=== PATIENT | female | born 1975 | race Caucasian/White ===

== ENCOUNTER → 2016-05-07 | Outpatient (CLI) | payer OTHER, MEDICAID ==
[~2016-05-07] MED LIST: ATOM60CA PO; BUSP15TA47 PO; INSUH10VL; MIRT15TA50 PO; PARO20TA2 PO; PAXI20TA3 PO; TRIA0.1C60 EXT
[2016-05-07 09:47] LABS: MEAN CORPUSCULAR HEMOGLOBIN 29.1 pg (27.0-33.0); MEAN CORPUSCULAR HGB CONC 31.4 g/dl (32.0-36.5); MEAN CORPUSCULAR VOLUME 92.5 fl (80.0-96.0); RED CELL DISTRIBUTION WIDTH 14.6 % (11.5-14.5); WHITE BLOOD COUNT 5.7 K/mm3 (4.0-10.0)
[2016-05-07 09:57] LABS: ALBUMIN 3.5 GM/DL (3.2-5.2); ANION GAP 6 MEQ/L (8-16); BLOOD UREA NITROGEN 11 MG/DL (7-18); CALCIUM LEVEL 8.3 MG/DL (8.5-10.1); CARBON DIOXIDE LEVEL 30 MEQ/L (21-32); CHLORIDE LEVEL 105 MEQ/L (98-107); CHOLESTEROL LEVEL 173 MG/DL (<200); CREATININE FOR GFR 0.67 MG/DL (0.55-1.02); GLOMERULAR FILTRATION RATE > 60.0 (>58); GLUCOSE, FASTING 238 MG/DL (70-105); PHOSPHORUS LEVEL 2.8 MG/DL (2.5-4.9); POTASSIUM SERUM 4.3 MEQ/L (3.5-5.1); SODIUM LEVEL 141 MEQ/L (136-145); TRIGLYCERIDES LEVEL 86 MG/DL (<150)
--- NOTE | 2016-05-07 17:56 | ECGEPIP ---
Stationary ECG Study [facility] Test Date: 2016-05-07 Pat Name: CHARLES RUIZ Department: Room: - Gender: F [employer]: RF : 1975 Requested By: WILLA CASTRO [employer]ER-S Order Number: [id number] Reading MD: Ihsan Glover Measurements Intervals [place] Rate: 88 P: 53 SD: 138 QRS: -7 QRSD: 112 T: 43 QT: 397 QTc: 481 Interpretive Statements Normal sinus rhythm Left atrial conduction disturbance. Incomplete Right bundle branch block Increase in QRS duration from 02/17/13. Electronically Signed On 05-07-2016 17:56:21 EST by Ihsan Glover
== END ==
LOC: M LAB 08:25
PROVIDERS: ATTEND Nurse Practitioner Psychiatric/Mental Health
DX: Z51.81 Encounter for therapeutic drug level monitoring (principal); Z79.02 Long term (current) use of antithrombotics/antiplatelets; E11.9 Type 2 diabetes mellitus without complications; Z79.4 Long term (current) use of insulin; D64.9 Anemia, unspecified; E04.9 Nontoxic goiter, unspecified

== ENCOUNTER → 2016-05-07 | Outpatient (CLI) | payer OTHER, MEDICAID ==
[2016-05-07 09:49] LABS: ALBUMIN 3.5 GM/DL (3.2-5.2); ALBUMIN/GLOBULIN RATIO 0.95 (1.00-1.93); ALKALINE PHOSPHATASE 127 U/L (45-117); ALT/SGPT 28 U/L (12-78); ANION GAP 7 MEQ/L (8-16); AST/SGOT 19 U/L (15-37); BILIRUBIN,TOTAL 0.2 MG/DL (0.2-1.0); BLOOD UREA NITROGEN 12 MG/DL (7-18); CALCIUM LEVEL 8.3 MG/DL (8.5-10.1); CARBON DIOXIDE LEVEL 30 MEQ/L (21-32); CHLORIDE LEVEL 105 MEQ/L (98-107); CREATININE FOR GFR 0.66 MG/DL (0.55-1.02); GLOMERULAR FILTRATION RATE > 60.0 (>58); GLUCOSE, FASTING 237 MG/DL (70-105); POTASSIUM SERUM 4.3 MEQ/L (3.5-5.1); SODIUM LEVEL 142 MEQ/L (136-145); TOTAL PROTEIN 7.2 GM/DL (6.4-8.2)
[2016-05-07 09:58] LABS: MEAN CORPUSCULAR HEMOGLOBIN 29.4 pg (27.0-33.0); MEAN CORPUSCULAR HGB CONC 31.7 g/dl (32.0-36.5); MEAN CORPUSCULAR VOLUME 92.7 fl (80.0-96.0); RED CELL DISTRIBUTION WIDTH 14.6 % (11.5-14.5); WHITE BLOOD COUNT 5.6 K/mm3 (4.0-10.0)
== END ==
LOC: M LAB 08:20
PROVIDERS: ATTEND Internal Medicine
DX: E11.9 Type 2 diabetes mellitus without complications (principal); Z79.4 Long term (current) use of insulin; D64.9 Anemia, unspecified

== ENCOUNTER → 2016-05-07 | Outpatient (CLI) | payer OTHER, MEDICAID | LOC: M LAB 08:31 | PROVIDERS: ATTEND Internal Medicine Endocrinology, Diabetes & Metabolism | DX: E04.9 Nontoxic goiter, unspecified (principal) ==

== ENCOUNTER 2016-06-19 16:08 | Emergency (ER) | payer OTHER, MEDICAID ==
[~2016-06-19] VITALS: Ht 152.4 cm; Wt 54.4 kg
[2016-06-19] MEDS ORDERED: INSUH10VL (16:24)
[2016-06-19] MEDS ORDERED: QUET5TAB (16:24)
[2016-06-19] MEDS ORDERED: BUSP15TA47 (16:24)
[2016-06-19] MEDS ORDERED: MIRT15TA3 (16:24)
[2016-06-19] MEDS ORDERED: PARO40TA2 (16:24)
[2016-06-19] MEDS ORDERED: ATOM60CA (16:24)
[2016-06-19] MEDS ORDERED: POTA1TAB23 (16:24)
[2016-06-19] MEDS ORDERED: INSULANT (16:24)
[2016-06-19] MEDS ORDERED: NAPROXEN 250 MG TAB PO ONE (18:00)
[2016-06-19] MEDS ORDERED: NAPR500T PO (18:27)
[2016-06-19 18:30] VITALS: BP 137/86
--- NOTE | 2016-06-19 18:38 | REP ---
Right hand series: Four views: History: Trauma. Findings: Four views of the right hand demonstrate overall normal mineralization. No fracture or subluxation is seen. There is some dorsal soft tissue swelling over the distal metacarpals. Soft tissue swelling is seen dorsally over the thumb distal phalanx as well. Impression: No fracture noted. Signed by Shreyas Dhaliwal MD 06/19/2016 07:14 P
== END 2016-06-19 18:32 | disposition home or self-care (01) ==
LOC: M ED 18:08
DX: S60.221A Contusion of right hand, initial encounter (principal); W22.8XXA Striking against or struck by other objects, initial encounter; Y92.099 Unspecified place in other non-institutional residence as the place of occurrence of the external cause; Y93.89 Activity, other specified; Y99.9 Unspecified external cause status

== ENCOUNTER → 2016-11-28 | Outpatient (REF) | payer OTHER, MEDICAID ==
[~2016-11-28] MED LIST changes: +ATOM60CA; +BUSP15TA47; +INSULANT; +MIRT15TA3; +NAPR500T PO; +PARO40TA2; +POTA1TAB23; +QUET5TAB
[2016-11-28 19:38] LABS: ALBUMIN 3.4 GM/DL (3.2-5.2); ALBUMIN/GLOBULIN RATIO 0.87 (1.00-1.93); ALKALINE PHOSPHATASE 162 U/L (45-117); ALT/SGPT 63 U/L (12-78); ANION GAP 6 MEQ/L (8-16); AST/SGOT 35 U/L (15-37); BILIRUBIN,TOTAL 0.5 MG/DL (0.2-1.0); BLOOD UREA NITROGEN 14 MG/DL (7-18); CALCIUM LEVEL 8.2 MG/DL (8.5-10.1); CARBON DIOXIDE LEVEL 29 MEQ/L (21-32); CHLORIDE LEVEL 105 MEQ/L (98-107); CHOLESTEROL LEVEL 246 MG/DL (<200); CREATININE FOR GFR 0.58 MG/DL (0.55-1.02); GLOMERULAR FILTRATION RATE > 60.0 (>58); GLUCOSE, FASTING 147 MG/DL (70-105); POTASSIUM SERUM 3.8 MEQ/L (3.5-5.1); SODIUM LEVEL 140 MEQ/L (136-145); TOTAL PROTEIN 7.3 GM/DL (6.4-8.2); TRIGLYCERIDES LEVEL 112 MG/DL (<150)
== END ==
LOC: M LAB REF 16:55
PROVIDERS: ATTEND Family Medicine Addiction Medicine
DX: Z00.01 Encounter for general adult medical examination with abnormal findings (principal); Z79.899 Other long term (current) drug therapy

== ENCOUNTER 2017-10-19 17:15 | Emergency (ER) | payer OTHER, MEDICAID ==
[2017-10-19] MEDS: PERCOCET 5MG/325MG TAB PO (17:53)
== END 2017-10-19 18:25 | disposition home or self-care (01) ==
LOC: M ED 17:15
DX: S80.02XA Contusion of left knee, initial encounter (principal); W18.39XA Other fall on same level, initial encounter; Y92.480 Sidewalk as the place of occurrence of the external cause; M25.462 Effusion, left knee; Z79.899 Other long term (current) drug therapy; Z88.0 Allergy status to penicillin
CPT/HCPCS: 73564